=== PATIENT | male | born 1980 | race Caucasian/White ===

== ENCOUNTER 2023-04-15 15:14 | Emergency (ER) | payer MEDICAID ==
[~2023-04-15] VITALS: Ht 165.1 cm; Wt 68.0 kg
[2023-04-15] MEDS ORDERED: LIDOCAINE HCL/MPF 1% 30 ML VIAL IJ ONE (15:47)
[2023-04-15] MEDS ORDERED: CEPH500C2 PO (17:30)
[2023-04-15 19:07] VITALS: BP 122/77; TEMP 98; O2SAT 99
== END 2023-04-15 19:07 | disposition home or self-care (01) ==
LOC: ER 15:28
DX: S61.216A Laceration without foreign body of right little finger without damage to nail, initial encounter (principal); F32.A Depression, unspecified; F10.129 Alcohol abuse with intoxication, unspecified; W45.8XXA Other foreign body or object entering through skin, initial encounter; Y93.89 Activity, other specified; Y92.89 Other specified places as the place of occurrence of the external cause; Y99.8 Other external cause status
CPT/HCPCS: 12001; 82962; 99283; A6403; J3490